=== PATIENT | female | born 1970 | race Caucasian/White ===

== ENCOUNTER 2017-03-17 12:44 | Inpatient (IN) | payer MEDICARE, OTHER ==
[~2017-03-17] VITALS: Ht 172.7 cm; Wt 74.0 kg
[~2017-03-17 12:44] MED LIST: CLON1 PO; CYCL-36 PO; GABA300 PO; KCL20 PO; LASI20TA PO; SERO300T PO; SERT100 PO; SUBO8MIS SL; ZOLP10TA3 PO
[2017-03-17] MEDS ORDERED: FLUT1SPR5 EACH NARE (17:05)
[2017-03-17] MEDS ORDERED: RISP1 PO (17:05)
[2017-03-17] MEDS ORDERED: LYRI75CA PO (17:05)
[2017-03-17] MEDS ORDERED: BUSP10TA PO (17:05)
[2017-03-17] MEDS ORDERED: ADDE20 PO (17:05)
[2017-03-17] MEDS ORDERED: DULO1CAP3 PO (17:05)
[2017-03-17] MEDS ORDERED: GABA600T PO (17:05)
[2017-03-17] MEDS ORDERED: XANA2TAB2 PO (17:05)
[2017-03-17 17:44] LABS: AUTOMATED NEUTROPHIL # 7.1 TH/MM3 (1.8-7.7); BASOPHIL % 0.5 % (0.0-2.0); EOSINOPHIL # 0.1 TH/MM3 (0-0.4); EOSINOPHIL % 0.8 % (0.0-4.0); HEMATOCRIT 40.9 % (35.0-46.0); HEMO FLAGS DIFF FINAL; LYMPH % 19.3 % (9.0-44.0); LYMPHOCYTE # 1.8 TH/MM3 (1.0-4.8); MEAN CELL VOLUME 87.9 FL (80.0-100.0); MEAN CORPUSCULAR HEMOGLOBIN 29.5 PG (27.0-34.0); MEAN CORPUSCULAR HGB CONC 33.6 % (32.0-36.0); MONO % 4.8 % (0.0-8.0); NEUT % 74.6 % (16.0-70.0); PLATELET COUNT 188 TH/MM3 (150-450); RED BLOOD COUNT 4.65 MIL/MM3 (4.00-5.30); RED CELL DISTRIBUTION WIDTH 13.5 % (11.6-17.2); WHITE BLOOD COUNT 9.5 TH/MM3 (4.0-11.0)
[2017-03-17 17:55] LABS: BICARBONATE 24.2 MEQ/L (21.0-32.0); POTASSIUM 3.5 MEQ/L (3.5-5.1)
[2017-03-17 18:00] VITALS: BP 98/63; PULSE 89; RESP 16; TEMP 98.3; O2SAT 97
[2017-03-17] MEDS ORDERED: ACETAMINOPHEN 325 MG TAB PO PRN (21:00)
[2017-03-17] MEDS ORDERED: REMOVE OLD NICODERM (NICOTINE) PATCH T-DERMAL SCH (21:00)
[2017-03-18] MEDS ORDERED: LORazepam 2 MG TAB PO PRN (03:45)
[2017-03-18] MEDS ORDERED: FLUMAZENIL 0.5 MG/5 ML VIAL IV PUSH PRN (03:45)
[2017-03-18] MEDS ORDERED: LORazepam 2 MG/ML VIAL IV PUSH PRN ×4 (03:45)
[2017-03-18] MEDS: LORazepam 1 MG TAB PO PRN ×2 (03:50→12:06)
[2017-03-18 05:58] VITALS: BP 117/69; PULSE 72; RESP 16; TEMP 98.5; O2SAT 98
[2017-03-18] MEDS ORDERED: NICOTINE 21 MG/24 HR PATCH T-DERMAL SCH (09:00)
[2017-03-18] MEDS ORDERED: ALUMINUM/MAGNESIUM/SIMETH 30 ML CUP PO ONE (09:30)
[2017-03-18] MEDS ORDERED: ALUMINUM/MAGNESIUM/SIMETH 30 ML CUP PO PRN (09:30)
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
[2017-03-18] MEDS ORDERED: DOXYCYCLINE HYCLATE 100 MG CAP PO SCH (10:30)
[2017-03-18] MEDS ORDERED: PANTOPRAZOLE SOD 40 MG DELAYED RELEASE TAB PO SCH (11:00)
[2017-03-18 11:24] VITALS: BP 143/90; PULSE 90; TEMP 98.1; O2SAT 98
[2017-03-18] MEDS ORDERED: DOXY100C PO (12:35)
[2017-03-18] MEDS ORDERED: PANT40TA3 PO (12:35)
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
[2017-03-18] MEDS ORDERED: DULO1CAP3 PO (12:49)
[2017-03-18] MEDS ORDERED: XANA2TAB2 PO (12:49)
[2017-03-18] MEDS ORDERED: RISP1 PO (12:49)
[2017-03-18 14:27] LABS: ANION GAP 7 MEQ/L (5-15); AST (GOT) 16 U/L (15-37); BICARBONATE 24.2 MEQ/L (21.0-32.0); BLOOD UREA NITROGEN 7 MG/DL (7-18); CHLORIDE 107 MEQ/L (98-107); GLOMERULAR FILTRATION RATE 77 ML/MIN (>89); POTASSIUM 3.2 MEQ/L (3.5-5.1); SODIUM (NA) 138 MEQ/L (136-145)
[2017-03-18 14:28] LABS: ALT (GPT) 27 U/L (10-53)
[2017-03-18 14:30] LABS: ALKALINE PHOSPHATASE 84 U/L (45-117); TOTAL BILIRUBIN ADULT 0.4 MG/DL (0.2-1.0)
[2017-03-18] MEDS ORDERED: POTASSIUM CHLORIDE 25 MEQ EFFERVESCENT TAB PO ONE (15:30)
--- NOTE | 2017-03-18 18:35 | EKG ---
Date Performed: 03/17/2017 Time Performed: 15:58:14 PTAGE: 46 years EKG: Sinus rhythm POSSIBLE RIGHT VENTRICULAR CONDUCTION DELAY BORDERLINE ECG NO PREVIOUS TRACING DOCTOR: Joyce Torres Interpretating Date/Time 03/18/2017 18:33:04
[2017-03-18] MEDS ORDERED: DOCUSATE SODIUM 50 MG/SENNA 8.6 MG TAB PO SCH (21:00)
== END 2017-03-18 16:05 | disposition home or self-care (01) | DRG 882 ==
LOC: UNDOADMIN 15:07 → H4EA 15:07
PROVIDERS: ADMIT Psychiatry & Neurology Psychiatry; ATTEND Psychiatry & Neurology Psychiatry
DX: F43.25 Adjustment disorder with mixed disturbance of emotions and conduct (principal); F41.9 Anxiety disorder, unspecified; F43.10 Post-traumatic stress disorder, unspecified
CPT/HCPCS: 80048; 80053; 83690; 85025; 93005